=== PATIENT | male | born 1950 | race Caucasian/White ===

== ENCOUNTER 2016-10-09 09:04 | Day surgery (SDC) | payer BC ==
[~2016-10-09] VITALS: Ht 160 cm; Wt 97.1 kg
[~2016-10-09 09:04] MED LIST: AMLODIPINE BESYL5 MG PO; ASPIR 8181 M1 PO; ASPIR-LOW81 MG PO; ATORVASTATIN CA40 MG PO; CHLORTHALIDONE25 MG PO; GABAPENTIN300 MG PO; IBUPROFEN200 M1 PO; LISINOPRIL20 MG PO; MULTIPLE VITAM1 EAC1 PO; NITROSTAT0.4 MG SL; NUCYNTA ER150 MG PO; NUCYNTA75 MG PO; TAMSULOSIN HCL0.4 MG PO; TRAMADOL HCL50 MG PO; TYLENOL WITH C1 EACH PO
== END 2016-10-09 10:38 | disposition home or self-care (01) ==
LOC: PAIN 09:04
DX: M51.16 Intervertebral disc disorders with radiculopathy, lumbar region (principal); M47.812 Spondylosis without myelopathy or radiculopathy, cervical region; R03.0 Elevated blood-pressure reading, without diagnosis of hypertension; E78.00 Pure hypercholesterolemia, unspecified; M62.830 Muscle spasm of back; M54.2 Cervicalgia; Z87.891 Personal history of nicotine dependence; Z79.82 Long term (current) use of aspirin; Z79.891 Long term (current) use of opiate analgesic; Z79.899 Other long term (current) drug therapy
CPT/HCPCS: J1100; J2250; J3010; S0020

== ENCOUNTER 2016-11-10 09:23 | Day surgery (SDC) | payer BC ==
[~2016-11-10] VITALS: Ht 162.6 cm; Wt 95.0 kg
== END 2016-11-10 11:05 | disposition home or self-care (01) ==
LOC: PAIN 09:23 → SDC 10:00 → PAIN 10:00
DX: M47.26 Other spondylosis with radiculopathy, lumbar region (principal); M51.16 Intervertebral disc disorders with radiculopathy, lumbar region; M54.2 Cervicalgia; M47.812 Spondylosis without myelopathy or radiculopathy, cervical region; R03.0 Elevated blood-pressure reading, without diagnosis of hypertension; E78.00 Pure hypercholesterolemia, unspecified; Z87.891 Personal history of nicotine dependence; Z79.82 Long term (current) use of aspirin; Z79.891 Long term (current) use of opiate analgesic
CPT/HCPCS: J1100; J2250; J3010

== ENCOUNTER 2017-01-05 11:54 | Day surgery (SDC) | payer BC ==
[~2017-01-05] VITALS: Ht 162.6 cm; Wt 98.9 kg
== END 2017-01-05 14:03 | disposition home or self-care (01) ==
LOC: PAIN 11:54 → SDC 12:30 → PAIN 14:03
DX: M47.816 Spondylosis without myelopathy or radiculopathy, lumbar region (principal); M54.5 Low back pain; F41.9 Anxiety disorder, unspecified
CPT/HCPCS: J1030; J2250; J3010; S0020

== ENCOUNTER 2017-01-12 11:27 | Day surgery (SDC) | payer BC ==
[~2017-01-12] VITALS: Ht 160 cm; Wt 98.9 kg
[~2017-01-12 11:27] MED LIST changes: +HYGROTON25 MG PO; +LISINOPRIL10 MG PO; +NEURONTIN300 MG PO
== END 2017-01-12 13:35 | disposition home or self-care (01) ==
LOC: PAIN 11:27 → SDC 12:30 → PAIN 12:30
DX: M47.26 Other spondylosis with radiculopathy, lumbar region (principal); F41.9 Anxiety disorder, unspecified; Z87.891 Personal history of nicotine dependence
CPT/HCPCS: J1030; J2250; J3010; S0020

== ENCOUNTER 2017-02-13 11:57 | Inpatient (IN) | payer BC ==
[~2017-02-13] VITALS: Ht 162.6 cm; Wt 96.0 kg
[2017-02-13] VITALS (9 sets, daily range): BP systolic 109–136; BP diastolic 36–63
[~2017-02-13 11:57] MED LIST changes: -LISINOPRIL10 MG PO; +ZESTRIL20 MG PO
[2017-02-13 13:06] LABS: HEMATOCRIT 20.6 % (38.0-50.0); MCH 20.1 PG (29.0-34.0); MCHC 27.7 G/DL (30.0-36.0); MCV 72.5 FL (86-99); MEAN PLAT.VOLUME 9.7 uM^3 (9.0-12.4); PLATELET COUNT 210 K/uL (156-360); RBC DIS.WIDTH-CV 20.7 % (11.8-14.6); RBC DIS.WIDTH-SD 54.9 % (39-53); RED BLOOD COUNT 2.84 M/uL (4.00-5.50); WHITE BLOOD COUNT 5.7 K/uL (4.1-10.2)
[2017-02-13 13:13] LABS: CHLORIDE 102 mEq/L (99-109); POTASSIUM 4.5 mEq/L (3.7-5.4); SODIUM 134 mEq/L (136-147)
[2017-02-13 13:15] LABS: GLUCOSE 90 mg/dL (70-99)
[2017-02-13 13:17] LABS: ANION GAP 12 MEQ/L (2-14)
[2017-02-13 13:19] LABS: GFR ESTIMATE (CALCULATED) > 59 mL/min/
[2017-02-13 13:20] LABS: UREA NITROGEN (BUN) 14 mg/dL (9-23)
[2017-02-13 13:24] LABS: TROP-I INTERPRETATION NEGATIVE; TROPONIN-I 0.02 ng/mL (0.0-0.30)
[2017-02-13 14:02] LABS: EOSINOPHIL (%) 1.5 % (0-5); EOSINOPHIL COUNT 0.1 K/uL (0-0.3); HEMATOCRIT 22.8 % (38.0-50.0); IMMATURE GRANULOCYTE (%) 0.3 % (0.0-0.7); INSTRUMENT ABS NEUTROPHIL CT 3.9 K/uL; LYMPHOCYTE COUNT 1.6 K/uL (1.0-2.8); MCH 20.5 PG (29.0-34.0); MCHC 27.6 G/DL (30.0-36.0); MEAN PLAT.VOLUME 10.1 uM^3 (9.0-12.4); MONOCYTE COUNT 0.9 K/uL (0-0.8); NEUTROPHIL (%) 60.4 % (45-76); NEUTROPHIL COUNT 3.9 K/uL (1.8-6.4); PLATELET COUNT 223 K/uL (156-360); RBC DIS.WIDTH-CV 20.9 % (11.8-14.6); RBC DIS.WIDTH-SD 55.9 % (39-53); RED BLOOD COUNT 3.08 M/uL (4.00-5.50); WHITE BLOOD COUNT 6.5 K/uL (4.1-10.2)
[2017-02-13] MEDS ORDERED: HYDROCODON-ACE1 EAC8 PO (15:07)
[2017-02-13] MEDS ORDERED: LIPITOR40 MG PO (15:09)
[2017-02-13] MEDS ORDERED: NAPROXEN500 MG PO (15:11)
[2017-02-13 23:51] LABS: INTERNAL CONTROL VALID? YES
[2017-02-14] VITALS (7 sets, daily range): BP systolic 103–156; BP diastolic 48–68
[2017-02-14 05:56] LABS: EOSINOPHIL (%) 2.2 % (0-5); EOSINOPHIL COUNT 0.2 K/uL (0-0.3); HEMATOCRIT 27.7 % (38.0-50.0); IMMATURE GRANULOCYTE (%) 0.1 % (0.0-0.7); INSTRUMENT ABS NEUTROPHIL CT 4.8 K/uL; LYMPHOCYTE COUNT 1.2 K/uL (1.0-2.8); MCHC 28.9 G/DL (30.0-36.0); MCV 76.1 FL (86-99); MEAN PLAT.VOLUME 9.4 uM^3 (9.0-12.4); MONOCYTE (%) 13.4 % (3-12); NEUTROPHIL (%) 67.5 % (45-76); NEUTROPHIL COUNT 4.8 K/uL (1.8-6.4); PLATELET COUNT 212 K/uL (156-360); RBC DIS.WIDTH-CV 21.1 % (11.8-14.6); RBC DIS.WIDTH-SD 58.2 % (39-53); RED BLOOD COUNT 3.64 M/uL (4.00-5.50); WHITE BLOOD COUNT 7.2 K/uL (4.1-10.2)
[2017-02-14 06:20] LABS: ALKALINE PHOSPHATASE 75 IU/L (3-129); ANION GAP 8 MEQ/L (2-14); CHLORIDE 104 MEQ/L (99-109); GFR ESTIMATE (CALCULATED) > 59 mL/min/; GLUCOSE 112 mg/dL (70-99); POTASSIUM 4.2 MEQ/L (3.7-5.4); SAMPLE HEMOLYSIS CHECK 0; SAMPLE ICTERIC CHECK 0; SAMPLE LIPEMIA CHECK 0; SODIUM 137 MEQ/L (136-147); TOTAL BILIRUBIN 0.8 MG/DL (0.0-1.0); UREA NITROGEN (BUN) 13 mg/dL (9-23)
[2017-02-14 08:12] LABS: TROP-I INTERPRETATION NEGATIVE; TROPONIN-I 0.04 ng/mL (0.0-0.30)
[2017-02-15 04:26] VITALS: BP 120/59
[2017-02-15 06:49] LABS: IMM.RETIC FRACTION 30.6 % (3-19); RETIC HGB EQUIVALENT 17.5 (28-36); RETICULOCYTE COUNT 1.7 % (0.5-1.8)
[2017-02-15 07:01] LABS: HEMATOCRIT 28.8 % (38.0-50.0); MCH 22.6 PG (29.0-34.0); MCHC 29.2 G/DL (30.0-36.0); MCV 77.4 FL (86-99); RBC DIS.WIDTH-CV 21.4 % (11.8-14.6); RBC DIS.WIDTH-SD 60.1 % (39-53); RED BLOOD COUNT 3.72 M/uL (4.00-5.50); WHITE BLOOD COUNT 6.6 K/uL (4.1-10.2)
[2017-02-15 07:09] LABS: ANION GAP 9 MEQ/L (2-14); CHLORIDE 105 MEQ/L (99-109); GFR ESTIMATE (CALCULATED) > 59 mL/min/; GLUCOSE 91 mg/dL (70-99); IRON 25 MCG/DL (35-150); MAGNESIUM 1.7 mg/dl (1.3-2.7); SAMPLE HEMOLYSIS CHECK 0; SAMPLE ICTERIC CHECK 0; SAMPLE LIPEMIA CHECK 0; SODIUM 139 MEQ/L (136-147); UREA NITROGEN (BUN) 10 mg/dL (9-23)
[2017-02-15 07:16] LABS: MEAN PLAT.VOLUME 9.5 uM^3 (9.0-12.4); PLATELET COUNT 222 K/uL (156-360)
[2017-02-15 07:54] VITALS: BP 124/60
[2017-02-15 07:58] LABS: FERRITIN 13 NG/ML (22-322)
[2017-02-15 11:30] VITALS: BP 122/58
[2017-02-15] MEDS ORDERED: NITROSTAT0.4 MG SL (11:53)
[2017-02-15] MEDS ORDERED: HYDROCODON-ACE1 EAC9 PO (11:53)
== END 2017-02-15 13:11 | disposition home or self-care (01) | DRG 811 ==
LOC: EME 11:57 → EDOF 15:12 → ENRESERV 15:14 → CANRESERV 15:57 → ENRESERV 17:18 → 4EAST 21:42 → ENRESERV 02-14 07:51 → 3EAST 02-14 09:53
PROVIDERS: Hospitalist; Internal Medicine; Physician Assistant
PROC: 30233N1 Transfusion of Nonautologous Red Blood Cells into Peripheral Vein, Percutaneous Approach (ICD-10-PCS; principal; 2017-02-13)
DX: D50.9 Iron deficiency anemia, unspecified (principal); E87.1 Hypo-osmolality and hyponatremia; I48.92 Unspecified atrial flutter; K57.31 Diverticulosis of large intestine without perforation or abscess with bleeding; I10 Essential (primary) hypertension; E78.5 Hyperlipidemia, unspecified; M54.9 Dorsalgia, unspecified; E66.3 Overweight; I20.9 Angina pectoris, unspecified; G47.33 Obstructive sleep apnea (adult) (pediatric); I48.91 Unspecified atrial fibrillation; R60.0 Localized edema; J44.9 Chronic obstructive pulmonary disease, unspecified; G89.29 Other chronic pain; Z79.899 Other long term (current) drug therapy; Z79.82 Long term (current) use of aspirin; Z87.891 Personal history of nicotine dependence; Z72.89 Other problems related to lifestyle; Z68.38 Body mass index [BMI] 38.0-38.9, adult
CPT/HCPCS: 71020; 74177; 80048; 80053; 82272; 82607; 82728; 82746; 83540; 83735; 84443; 84466; 84484; 85025; 85027; 85045; 86850; 86900; 86901; 86920; 93005; 94660; 99281; 99285; P9016

== ENCOUNTER → 2017-03-06 | Outpatient (CLI) | payer BC ==
[~2017-03-06] VITALS: Ht 160 cm; Wt 99.3 kg
[~2017-03-06] MED LIST changes: +HYDROCODON-ACE1 EAC8 PO; +HYDROCODON-ACE1 EAC9 PO; +LIPITOR40 MG PO; +NAPROXEN500 MG PO
[2017-03-06 09:28] LABS: BASOPHIL COUNT 0.1 K/uL (0-0.1); EOSINOPHIL (%) 2.4 % (0-5); EOSINOPHIL COUNT 0.2 K/uL (0-0.3); HEMATOCRIT 33.1 % (38.0-50.0); IMMATURE GRANULOCYTE (%) 0.6 % (0.0-0.7); LYMPHOCYTE COUNT 1.3 K/uL (1.0-2.8); MCV 79.4 FL (86-99); MEAN PLAT.VOLUME 9.3 uM^3 (9.0-12.4); MONOCYTE (%) 11.3 % (3-12); MONOCYTE COUNT 0.7 K/uL (0-0.8); PLATELET COUNT 260 K/uL (156-360); RBC DIS.WIDTH-CV 23.7 % (11.8-14.6); RED BLOOD COUNT 4.17 M/uL (4.00-5.50); WHITE BLOOD COUNT 6.3 K/uL (4.1-10.2)
[2017-03-06 11:20] LABS: ANISOCYTOSIS 2+; EOSINOPHIL ABS CT 0.1; MACROCYTES 1+; MICROCYTOSIS 1+; PLAT.SUFFICIENCY ADEQUATE; TARGET CELLS FEW
== END | disposition home or self-care (01) ==
LOC: OPR 08:46 → EDSTATUS 09:00 → OPR 09:00
PROVIDERS: Internal Medicine Medical Oncology
PROC: 07DR3ZX Extraction of Iliac Bone Marrow, Percutaneous Approach, Diagnostic (ICD-10-PCS; principal; 2017-03-06)
DX: D50.9 Iron deficiency anemia, unspecified (principal)
CPT/HCPCS: 77012; 85007; 85025; J3010

== ENCOUNTER → 2017-03-10 | Outpatient (CLI) | payer BC ==
[~2017-03-10] VITALS: Ht 157.5 cm; Wt 99.3 kg
== END | disposition home or self-care (01) ==
LOC: AMB 10:53
DX: K55.20 Angiodysplasia of colon without hemorrhage (principal); K31.819 Angiodysplasia of stomach and duodenum without bleeding; K29.50 Unspecified chronic gastritis without bleeding; K57.30 Diverticulosis of large intestine without perforation or abscess without bleeding; D50.9 Iron deficiency anemia, unspecified; M51.26 Other intervertebral disc displacement, lumbar region; M54.9 Dorsalgia, unspecified; E78.00 Pure hypercholesterolemia, unspecified; Z82.49 Family history of ischemic heart disease and other diseases of the circulatory system; Z80.9 Family history of malignant neoplasm, unspecified; Z87.891 Personal history of nicotine dependence
CPT/HCPCS: 88305; 88342 TC; J2250; J3010

== ENCOUNTER 2017-04-14 10:57 | Day surgery (SDC) | payer BC ==
[~2017-04-14] VITALS: Ht 160 cm; Wt 97.3 kg
[~2017-04-14 10:57] MED LIST changes: +FERRO-TIME325 MG PO; -NEURONTIN300 MG PO; +NEURONTIN600 MG PO
== END 2017-04-14 13:45 | disposition home or self-care (01) ==
LOC: PAIN 10:57 → SDC 12:30 → PAIN 13:45
DX: M47.26 Other spondylosis with radiculopathy, lumbar region (principal); M51.16 Intervertebral disc disorders with radiculopathy, lumbar region; M48.061 Spinal stenosis, lumbar region without neurogenic claudication; I48.92 Unspecified atrial flutter; I10 Essential (primary) hypertension; D50.9 Iron deficiency anemia, unspecified; F41.9 Anxiety disorder, unspecified; E78.00 Pure hypercholesterolemia, unspecified; Z87.891 Personal history of nicotine dependence; Z79.891 Long term (current) use of opiate analgesic
CPT/HCPCS: J1030; J2250; J3010; S0020

== ENCOUNTER 2017-04-21 11:50 | Day surgery (SDC) | payer BC ==
[~2017-04-21] VITALS: Ht 162.6 cm; Wt 97.3 kg
== END 2017-04-21 13:54 | disposition home or self-care (01) ==
LOC: PAIN 11:50 → SDC 12:30 → PAIN 13:54
DX: M47.26 Other spondylosis with radiculopathy, lumbar region (principal); M54.5 Low back pain; G89.29 Other chronic pain; M51.16 Intervertebral disc disorders with radiculopathy, lumbar region; D63.8 Anemia in other chronic diseases classified elsewhere; M50.90 Cervical disc disorder, unspecified, unspecified cervical region; E78.00 Pure hypercholesterolemia, unspecified; F41.9 Anxiety disorder, unspecified; I10 Essential (primary) hypertension; G47.33 Obstructive sleep apnea (adult) (pediatric); R94.31 Abnormal electrocardiogram [ECG] [EKG]; F17.290 Nicotine dependence, other tobacco product, uncomplicated
CPT/HCPCS: J1030; J2250; J3010; S0020